=== PATIENT | male | born 2000 | race Caucasian/White ===

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

== ENCOUNTER 2021-06-26 10:04 | Emergency (ER) | payer OTHER ==
[~2021-06-26] VITALS: Ht 167.6 cm; Wt 64.0 kg
[~2021-06-26 10:04] MED LIST changes: +CETIRIZINE10 MG PO
[2021-06-26 10:42] LABS: URINE BILIRUBIN - DIPSTICK NEGATIVE (NEGATIVE); URINE BLOOD DIPSTICK NEGATIVE (NEGATIVE); URINE COLOR YELLOW; URINE GLUCOSE - DIPSTICK NEGATIVE (NEGATIVE); URINE KETONE NEGATIVE (NEGATIVE); URINE LEUK ESTERASE NEGATIVE (NEGATIVE); URINE PROTEIN - DIPSTICK NEGATIVE (NEG-TRACE); URINE SPECIFIC GRAVITY <=1.005; URINE UROBILINOGEN - DIPSTICK 0.2 E.U./dL (0.2)
[2021-06-26 10:48] LABS: URINE NITRITE - DIPSTICK NEGATIVE (Negative)
[2021-06-26 11:14] LABS: HEMATOCRIT 46.5 % (39.0-50.0); HEMOGLOBIN 15.3 g/dl (14.0-18.0); IMMATURE GRANULOCYTES 0.1 % (0.0-5.0); MEAN CELL VOLUME 88.9 fL CALC (80.0-100.0); MEAN CORPUSCULAR HGB 29.3 pG CALC (26.0-32.0); MEAN CORPUSCULAR HGB CONC 32.9 g/dL CAL (32.0-36.0); NEUT# 6.79 thou/uL (1.82-7.42); RED BLOOD COUNT 5.23 mill/uL (4.70-6.10); RED CELL DISTRI WIDTH 12.9 % (11.5-15.5)
[2021-06-26 11:41] LABS: ALBUMIN 4.6 g/dL (3.2-5.0); ALKALINE PHOSPHATASE 61 u/l (38-126); AMYLASE 55 u/l (30-110); ANION GAP 15 (6-22 (CALC)); BUN 12 mg/dL (8-21); BUN/CREATININE RATIO 17 (12-20 (CALC)); CARBON DIOXIDE 25 mmol/l (22-30); CHLORIDE 105 mmol/l (95-108); CREATININE 0.7 mg/dL (0.7-1.3); GFR > 60 ML/MIN (>=60 (CALC)); GFR FOR AFR.AMER. > 60 ML/MIN (>=60 (CALC)); LIPASE 66 u/l (23-300); POTASSIUM 3.9 mmol/l (3.5-5.1); SGOT/AST 24 u/l (17-59); SODIUM 141 mmol/l (137-146); TOTAL PROTEIN 7.7 g/dL (6.3-8.2)
[2021-06-26 11:45] LABS: BILIRUBIN, TOTAL 0.7 mg/dL (0.0-1.4)
[2021-06-26 13:04] VITALS: BP 122/72
== END 2021-06-26 13:20 | disposition home or self-care (01) ==
LOC: ED 10:04
DX: A02.0 Salmonella enteritis (principal); F17.210 Nicotine dependence, cigarettes, uncomplicated; Z20.822 Contact with and (suspected) exposure to COVID-19
CPT/HCPCS: Q9967

== ENCOUNTER 2022-08-04 16:21 | Emergency (ER) | payer OTHER ==
[~2022-08-04] VITALS: Ht 167.6 cm; Wt 74.0 kg
[2022-08-04 16:52] VITALS: BP 131/83
[2022-08-04 17:06] LABS: URINE BILIRUBIN - DIPSTICK NEGATIVE (NEGATIVE); URINE BLOOD DIPSTICK NEGATIVE (NEGATIVE); URINE COLOR YELLOW; URINE GLUCOSE - DIPSTICK NEGATIVE (NEGATIVE); URINE KETONE NEGATIVE (NEGATIVE); URINE LEUK ESTERASE NEGATIVE (NEGATIVE); URINE PH 6.5 (4.5-8.0); URINE PROTEIN - DIPSTICK NEGATIVE (NEG-TRACE); URINE SPECIFIC GRAVITY >=1.030; URINE UROBILINOGEN - DIPSTICK 0.2 E.U./dL (0.2)
[2022-08-04 17:12] LABS: URINE NITRITE - DIPSTICK NEGATIVE (Negative)
[2022-08-04 17:26] LABS: BASO% 0.4 % (0-3); EOS% 1.7 % (0-8); HEMATOCRIT 44.5 % (39.0-50.0); HEMOGLOBIN 15.2 g/dl (14.0-18.0); IMMATURE GRANULOCYTES 0.1 % (0.0-5.0); MEAN CELL VOLUME 87.9 fL CALC (80.0-100.0); MEAN CORPUSCULAR HGB CONC 34.2 g/dL CAL (32.0-36.0); MONO% 5.4 % (2-13); NEUT# 7.06 thou/uL (1.82-7.42); NEUT% 62.4 % (42-76); RED BLOOD COUNT 5.06 mill/uL (4.70-6.10); RED CELL DISTRI WIDTH 12.9 % (11.5-15.5)
[2022-08-04 17:43] LABS: ALKALINE PHOSPHATASE 60 u/l (38-126); ANION GAP 14 (6-22 (CALC)); BILIRUBIN, TOTAL 0.6 mg/dL (0.0-1.4); BUN 17 mg/dL (9-20); BUN/CREATININE RATIO 19 (12-20 (CALC)); CARBON DIOXIDE 26 mmol/l (22-30); CHLORIDE 106 mmol/l (95-108); CREATININE 0.9 mg/dL (0.7-1.3); GFR FOR AFR.AMER. > 60 ML/MIN (>=60 (CALC)); GFR OTHER RACES > 60 ML/MIN (>=60 (CALC)); POTASSIUM 3.7 mmol/l (3.5-5.1); SGOT/AST 24 u/l (17-59); SODIUM 141 mmol/l (137-146); TOTAL PROTEIN 8.1 g/dL (6.3-8.2)
[2022-08-04 17:45] LABS: ALBUMIN 5.6 g/dL (3.2-5.0)
[2022-08-04] MEDS ORDERED: TRAMADOL HYDROC50 M1 PO (18:35)
[2022-08-04] MEDS ORDERED: NAPROXEN500 MG PO (18:35)
[2022-08-04] MEDS ORDERED: LEVOFLOXACIN500MG PO (18:35)
[2022-08-04 18:45] VITALS: BP 131/83
== END 2022-08-04 18:51 | disposition home or self-care (01) ==
LOC: ED 16:21
PROVIDERS: Nurse Practitioner
DX: N50.812 Left testicular pain (principal); N50.811 Right testicular pain; F17.210 Nicotine dependence, cigarettes, uncomplicated

== ENCOUNTER 2022-11-07 10:10 | Emergency (ER) | payer OTHER ==
[~2022-11-07] VITALS: Ht 167.6 cm; Wt 66.0 kg
[2022-11-07] VITALS (9 sets, daily range): BP systolic 110–125; BP diastolic 60–80
[~2022-11-07 10:10] MED LIST changes: +LEVOFLOXACIN500MG PO; +NAPROXEN500 MG PO; +TRAMADOL HYDROC50 M1 PO
[2022-11-07] MEDS ORDERED: XANAX0.25 MG PO (11:52)
== END 2022-11-07 12:04 | disposition home or self-care (01) ==
LOC: ED 10:10
DX: R07.9 Chest pain, unspecified (principal); F41.9 Anxiety disorder, unspecified; F17.210 Nicotine dependence, cigarettes, uncomplicated; F17.290 Nicotine dependence, other tobacco product, uncomplicated

== ENCOUNTER 2022-11-26 08:14 | Emergency (ER) | payer OTHER ==
[2022-11-26] VITALS (12 sets, daily range): BP systolic 104–126; BP diastolic 53–78
[~2022-11-26] VITALS: Ht 170.2 cm; Wt 65.8 kg
[~2022-11-26 08:14] MED LIST changes: +XANAX0.25 MG PO
[2022-11-26 08:52] LABS: BASO% 0.6 % (0-3); EOS% 3.4 % (0-8); HEMATOCRIT 47.7 % (39.0-50.0); IMMATURE GRANULOCYTES 0.1 % (0.0-5.0); MEAN CORPUSCULAR HGB 29.2 pG CALC (26.0-32.0); MEAN CORPUSCULAR HGB CONC 33.5 g/dL CAL (32.0-36.0); MONO% 5.8 % (2-13); NEUT# 4.12 thou/uL (1.82-7.42); NEUT% 58.1 % (42-76); RED BLOOD COUNT 5.48 mill/uL (4.70-6.10); RED CELL DISTRI WIDTH 12.1 % (11.5-15.5)
[2022-11-26 09:01] LABS: ALKALINE PHOSPHATASE 54 u/l (38-126); ANION GAP 15 (6-22 (CALC)); BILIRUBIN, TOTAL 0.7 mg/dL (0.2-1.3); BUN 16 mg/dL (9-20); BUN/CREATININE RATIO 18 (12-20 (CALC)); CARBON DIOXIDE 24 mmol/l (22-30); CHLORIDE 106 mmol/l (95-108); CREATININE 0.9 mg/dL (0.7-1.3); ETHYL ALCOHOL 0 mg/dl (0-30); GFR FOR AFR.AMER. > 60 ML/MIN (>=60 (CALC)); GFR OTHER RACES > 60 ML/MIN (>=60 (CALC)); POTASSIUM 4.6 mmol/l (3.5-5.1); SGOT/AST 20 u/l (17-59); SODIUM 140 mmol/l (137-146); TOTAL PROTEIN 7.1 g/dL (6.3-8.2)
[2022-11-26 09:57] LABS: TSH, 3RD GENERATION 0.56 uIU/mL (0.47 - 4.68)
[2022-11-26] MEDS ORDERED: ALPRAZOLAM0.25 MG PO (10:49)
== END 2022-11-26 11:20 | disposition home or self-care (01) ==
LOC: ED 08:14
PROVIDERS: Family Medicine
DX: F41.9 Anxiety disorder, unspecified (principal); F17.200 Nicotine dependence, unspecified, uncomplicated

== ENCOUNTER 2022-12-08 09:07 | Emergency (ER) | payer OTHER ==
[~2022-12-08] VITALS: Ht 170.2 cm; Wt 65.7 kg
[~2022-12-08 09:07] MED LIST changes: +ALPRAZOLAM0.25 MG PO
[2022-12-08 09:13] VITALS: BP 137/83
[2022-12-08 09:15] VITALS: BP 132/87
[2022-12-08 10:01] VITALS: BP 113/74
[2022-12-08 10:52] VITALS: BP 113/74
== END 2022-12-08 10:58 | disposition home or self-care (01) ==
LOC: ED 09:07
DX: F41.9 Anxiety disorder, unspecified (principal); F17.200 Nicotine dependence, unspecified, uncomplicated

== ENCOUNTER 2023-03-02 10:04 | Emergency (ER) | payer OTHER ==
[~2023-03-02] VITALS: Ht 170.2 cm; Wt 68.0 kg
[2023-03-02] MEDS ORDERED: TRAMADOL HYDROC50 M1 PO (12:09)
[2023-03-02] MEDS ORDERED: NAPROXEN500 MG PO (12:09)
[2023-03-02] MEDS ORDERED: CLINDAMYCIN HY150 MG PO (12:09)
[2023-03-02 12:33] VITALS: BP 128/78
== END 2023-03-02 12:42 | disposition home or self-care (01) ==
LOC: ED 10:04
DX: K04.7 Periapical abscess without sinus (principal); S02.5XXA Fracture of tooth (traumatic), initial encounter for closed fracture; X58.XXXA Exposure to other specified factors, initial encounter

== ENCOUNTER 2023-08-01 11:03 | Emergency (ER) | payer OTHER ==
[2023-08-01] VITALS (8 sets, daily range): BP systolic 101–121; BP diastolic 59–76
[~2023-08-01] VITALS: Ht 170.2 cm; Wt 74.8 kg
[~2023-08-01 11:03] MED LIST changes: +CLINDAMYCIN HY150 MG PO
[2023-08-01] MEDS ORDERED: NAPROXEN500 MG PO (13:58)
== END 2023-08-01 14:25 | disposition home or self-care (01) ==
LOC: ED 11:03
DX: S83.91XA Sprain of unspecified site of right knee, initial encounter (principal); F17.200 Nicotine dependence, unspecified, uncomplicated; W17.2XXA Fall into hole, initial encounter; Y99.0 Civilian activity done for income or pay

== ENCOUNTER 2024-08-03 13:47 | Emergency (ER) | payer SELFPAY ==
[~2024-08-03] VITALS: Ht 170.2 cm; Wt 68.0 kg
[2024-08-03] VITALS (11 sets, daily range): BP systolic 104–122; BP diastolic 62–84
[2024-08-03] MEDS ORDERED: KETOROLAC TROMETHAMINE 30 MG/ML SDV IV ONE (15:40)
[2024-08-03] MEDS ORDERED: ORPHENADRINE CITRATE 30 MG/ML AMP IV ONE (15:40)
[2024-08-03 16:14] LABS: ALKALINE PHOSPHATASE 49 u/l (38-126); ANION GAP 14 (6-22 (CALC)); BILIRUBIN, TOTAL 0.6 mg/dL (0.2-1.3); BUN 16 mg/dL (9-20); BUN/CREATININE RATIO 19 (12-20 (CALC)); CARBON DIOXIDE 24 mmol/l (22-30); CHLORIDE 107 mmol/l (95-108); CREATININE 0.8 mg/dL (0.7-1.3); ESTIMATED GFR 128 ML/MIN (>=90 (CALC)); POTASSIUM 3.7 mmol/l (3.5-5.1); SGOT/AST 28 u/l (17-59); SODIUM 142 mmol/l (137-146); TOTAL PROTEIN 7.6 g/dL (6.3-8.2)
[2024-08-03 16:19] LABS: BASO% 0.4 % (0-3); EOS% 1.5 % (0-8); HEMATOCRIT 44.3 % (39.0-50.0); HEMOGLOBIN 14.9 g/dl (14.0-18.0); IMMATURE GRANULOCYTES 0.1 % (0.0-5.0); LYMPH% 17.9 % (15-41); MEAN CELL VOLUME 86.7 fL CALC (80.0-100.0); MEAN CORPUSCULAR HGB 29.2 pG CALC (26.0-32.0); MEAN CORPUSCULAR HGB CONC 33.6 g/dL CAL (32.0-36.0); MONO% 5.4 % (2-13); NEUT# 10.15 thou/uL (1.82-7.42); NEUT% 74.7 % (42-76); RED BLOOD COUNT 5.11 mill/uL (4.70-6.10); RED CELL DISTRI WIDTH 12.4 % (11.5-15.5)
[2024-08-03] MEDS ORDERED: METHOCARBAMOL500 MG PO (17:00)
== END 2024-08-03 17:48 | disposition home or self-care (01) | DRG 313 ==
LOC: ED 13:47
PROVIDERS: Nurse Practitioner
DX: R07.89 Other chest pain (principal); F17.200 Nicotine dependence, unspecified, uncomplicated
CPT/HCPCS: J2360